=== PATIENT | male | born 1975 | race Two or more races ===

== ENCOUNTER 2018-12-20 14:02 | Inpatient (IN) | payer OTHER ==
[~2018-12-20] VITALS: Ht 182.9 cm; Wt 104.0 kg
[2018-12-20] MEDS ORDERED: CLOTRIMAZOLE 1% 15 GM CREAM TP ONE (15:00)
[2018-12-20 15:29] LABS: ANION GAP 11 mmol/L (8-16); CALCIUM, TOTAL 9.7 mg/dL (8.8-10.5); CARBON DIOXIDE 28 mmol/L (22-29); CHLORIDE 99 mmol/L (98-107); GLOMERULAR FILTR. RATE CALC > 60 mL/min (>60); GLUCOSE,RANDOM 76 mg/dL (70-110); POTASSIUM 3.5 mmol/L (3.5-5.1); SODIUM SERUM 138 mmol/L (136-145); UREA NITROGEN, BLOOD 18 mg/dL (7-18)
[2018-12-20 15:34] LABS: ALANINE AMINOTRANSFERASE 16 U/L (12-78); ALBUMIN 4.1 g/dL (3.4-5.0); ALKALINE PHOSPHATASE 74 U/L (46-116); ASPARTATE AMINOTRANSFERASE 15 U/L (15-37); BASOPHILS % (AUTO) 0.9 % (0.0-2.0); BILIRUBIN,TOTAL 0.7 mg/dL (0.1-1.0); EOSINOPHILS % (AUTO) 1.8 % (1.0-6.0); HEMATOCRIT 50.8 % (41-53); HEMOGLOBIN 17.1 g/dL (13.5-17.5); LYMPHOCYTES # (AUTO) 1.6 K/uL (1.0-4.8); LYMPHOCYTES % (AUTO) 15.5 % (22.0-44.0); MEAN CORPUSCULAR HEMOGLOBIN 28.5 pg (26.0-34.0); MEAN CORPUSCULAR HGB CONC 33.7 G/dL (31.0-37.0); MEAN CORPUSCULAR VOLUME 85 fL (80-100); MONOCYTES # (AUTO) 0.9 K/uL (0.1-1.0); MONOCYTES % (AUTO) 8.3 % (2.0-9.0); NEUTROPHILS # (AUTO) 7.7 K/uL (1.8-7.7); NEUTROPHILS % (AUTO) 73.5 % (40.0-70.0); PLATELET COUNT (AUTO) 430 K/uL (150-450); RED BLOOD CELL COUNT(AUTO) 6.01 MIL/uL (4.50-5.90); RED CELL DISTRIBUTION WIDTH 14.2 % (11.5-14.5); TOTAL PROTEIN, SERUM 7.9 g/dL (6.4-8.2)
[2018-12-20] MEDS ORDERED: ONDANSETRON HCL 4 MG/2 ML VIAL IVP PRN ×2 (16:00→16:15)
[2018-12-20] MEDS ORDERED: HYDROCODONE/ACETAMINOPHEN 5-325 MG TABLET PO PRN (16:00)
[2018-12-20] MEDS ORDERED: MORPHINE SULFATE 2 MG/ML SYRINGE IVP PRN (16:00)
[2018-12-20] MEDS ORDERED: IPRATROPIUM BROMIDE 0.5 MG/2.5 ML NEB SOLUTION NEB PRN (16:00)
[2018-12-20] MEDS ORDERED: BISACODYL 10 MG RECTAL RECTAL SUPPOSITORY PR PRN (16:00)
[2018-12-20] MEDS ORDERED: MAGNESIUM HYDROXIDE SUSPENSION 30 ML UDCUP PO PRN (16:00)
[2018-12-20] MEDS ORDERED: DOCUSATE SODIUM 100 MG CAPSULE PO PRN (16:00)
[2018-12-20] MEDS ORDERED: ALBUTEROL SULFATE 2.5 MG/0.5 ML NEB SOLUTION NEB PRN (16:00)
[2018-12-20] MEDS ORDERED: ACETAMINOPHEN 325 MG TABLET PO PRN (16:15)
[2018-12-20] MEDS ORDERED: 0.9% SODIUM CHLORIDE 10 ML SYRINGE IVP PRN (16:15)
[2018-12-20] MEDS ORDERED: DiphenhydrAMINE HCL 25 MG CAPSULE PO PRN (16:30)
[2018-12-20] MEDS: FOLIC ACID 1 MG TABLET PO SCH (16:31)
[2018-12-20] MEDS ORDERED: LORazepam 2 MG/ML VIAL IVP PRN (17:00)
[2018-12-20 17:06] VITALS: BP 119/72
[2018-12-20] MEDS: MULTIVITAMINS, THERAPEUTIC TABLET PO SCH (17:28)
[2018-12-20] MEDS: SODIUM CHLORIDE 0.9% 1,000 ML IV SCH (17:28)
[2018-12-20] MEDS: ACETAMINOPHEN 325 MG TABLET PO PRN (18:06)
[2018-12-20 19:15] VITALS: BP 113/54
[2018-12-20] MEDS: FAMOTIDINE 20 MG TABLET PO SCH (20:24)
[2018-12-20 23:48] VITALS: BP 114/59
[2018-12-21 04:00] VITALS: BP 114/97
[2018-12-21] MEDS: ChlordiazePOXIDE HCL 25 MG CAPSULE PO PRN (06:37)
[2018-12-21] MEDS: SODIUM CHLORIDE 0.9% 1,000 ML IV SCH ×2 (06:37→19:35)
[2018-12-21 07:22] LABS: ANION GAP 9 mmol/L (8-16); CALCIUM, TOTAL 8.7 mg/dL (8.8-10.5); CARBON DIOXIDE 25 mmol/L (22-29); CHLORIDE 102 mmol/L (98-107); CREATININE 0.77 mg/dL (0.60-1.30); GLOMERULAR FILTR. RATE CALC > 60 mL/min (>60); GLUCOSE,RANDOM 80 mg/dL (70-110); POTASSIUM 4.3 mmol/L (3.5-5.1); SODIUM SERUM 136 mmol/L (136-145); UREA NITROGEN, BLOOD 18 mg/dL (7-18)
[2018-12-21 07:38] LABS: BASOPHILS % (AUTO) 1.2 % (0.0-2.0); EOSINOPHILS % (AUTO) 2.8 % (1.0-6.0); HEMATOCRIT 48.8 % (41-53); HEMOGLOBIN 15.9 g/dL (13.5-17.5); LYMPHOCYTES # (AUTO) 1.3 K/uL (1.0-4.8); LYMPHOCYTES % (AUTO) 18.9 % (22.0-44.0); MEAN CORPUSCULAR HEMOGLOBIN 27.9 pg (26.0-34.0); MEAN CORPUSCULAR HGB CONC 32.7 G/dL (31.0-37.0); MEAN CORPUSCULAR VOLUME 86 fL (80-100); MONOCYTES # (AUTO) 0.9 K/uL (0.1-1.0); MONOCYTES % (AUTO) 13.5 % (2.0-9.0); NEUTROPHILS # (AUTO) 4.3 K/uL (1.8-7.7); NEUTROPHILS % (AUTO) 63.6 % (40.0-70.0); PLATELET COUNT (AUTO) 344 K/uL (150-450); RED BLOOD CELL COUNT(AUTO) 5.71 MIL/uL (4.50-5.90); RED CELL DISTRIBUTION WIDTH 14.1 % (11.5-14.5)
[2018-12-21 07:45] VITALS: BP 93/52
[2018-12-21] MEDS: THIAMINE HCL 100 MG TABLET PO SCH (08:15)
[2018-12-21] MEDS: MULTIVITAMINS, THERAPEUTIC TABLET PO SCH (08:15)
[2018-12-21] MEDS: FOLIC ACID 1 MG TABLET PO SCH (08:15)
[2018-12-21] MEDS: FAMOTIDINE 20 MG TABLET PO SCH ×2 (08:15→19:34)
[2018-12-21 11:38] VITALS: BP 100/69
[2018-12-21 15:30] VITALS: BP 122/78
[2018-12-21 19:30] VITALS: BP 106/61
[2018-12-21 23:25] VITALS: BP 97/57
[2018-12-22 04:50] VITALS: BP 104/61
[2018-12-22 07:30] VITALS: BP 113/62
[2018-12-22] MEDS: FOLIC ACID 1 MG TABLET PO SCH (08:46)
[2018-12-22] MEDS: FAMOTIDINE 20 MG TABLET PO SCH (08:46)
[2018-12-22] MEDS: THIAMINE HCL 100 MG TABLET PO SCH (08:49)
[2018-12-22] MEDS: MULTIVITAMINS, THERAPEUTIC TABLET PO SCH (08:49)
[2018-12-22] MEDS: ChlordiazePOXIDE HCL 25 MG CAPSULE PO PRN (08:58)
[2018-12-22] MEDS: ACETAMINOPHEN 325 MG TABLET PO PRN (08:59)
[2018-12-22] MEDS: SODIUM CHLORIDE 0.9% 1,000 ML IV SCH (10:39)
[2018-12-22 11:00] VITALS: BP 108/68
[2018-12-22] MEDS ORDERED: CHLO25CA5 PO (13:00)
== END 2018-12-22 15:50 | disposition home or self-care (01) | DRG 897 ==
LOC: EMS 14:05 → 6S 16:03
PROVIDERS: ADMIT Internal Medicine; ATTEND Internal Medicine
DX: F10.10 Alcohol abuse, uncomplicated (principal); F15.10 Other stimulant abuse, uncomplicated; B35.4 Tinea corporis; Z87.891 Personal history of nicotine dependence; I11.9 Hypertensive heart disease without heart failure
CPT/HCPCS: 99406; G0480; J7030

== ENCOUNTER 2020-11-11 13:54 | Inpatient (IN) | payer OTHER ==
[~2020-11-11] VITALS: Ht 188 cm; Wt 90.9 kg
[~2020-11-11 13:54] MED LIST: CHLO25CA5 PO
[2020-11-11] MEDS ORDERED: ChlordiazePOXIDE HCL 25 MG CAPSULE PO ONE (14:15)
[2020-11-11 15:03] LABS: BASOPHILS % (AUTO) 0.7 % (0.0-2.0); HEMATOCRIT 48.4 % (41-53); LYMPHOCYTES # (AUTO) 1.7 K/uL (1.0-4.8); LYMPHOCYTES % (AUTO) 20.6 % (22.0-44.0); MEAN CORPUSCULAR HEMOGLOBIN 27.9 pg (26.0-34.0); MEAN CORPUSCULAR HGB CONC 33.1 G/dL (31.0-37.0); MEAN CORPUSCULAR VOLUME 84 fL (80-100); MONOCYTES # (AUTO) 0.7 K/uL (0.1-1.0); MONOCYTES % (AUTO) 8.6 % (2.0-9.0); NEUTROPHILS # (AUTO) 5.6 K/uL (1.8-7.7); NEUTROPHILS % (AUTO) 68.1 % (40.0-70.0); PLATELET COUNT (AUTO) 339 K/uL (150-450); RED BLOOD CELL COUNT(AUTO) 5.73 MIL/uL (4.50-5.90); RED CELL DISTRIBUTION WIDTH 14.7 % (11.5-14.5)
[2020-11-11 15:08] LABS: COVID AG,FIA SOURCE NASOPHARYNGEAL
[2020-11-11 15:12] LABS: ANION GAP 6 mmol/L (8-16); CARBON DIOXIDE 30 mmol/L (22-29); CHLORIDE 108 mmol/L (98-107); CREATININE 0.81 mg/dL (0.60-1.30); GLOMERULAR FILTR. RATE CALC > 60 mL/min (>60); GLUCOSE,RANDOM 63 mg/dL (70-110); POTASSIUM 3.4 mmol/L (3.5-5.1); SODIUM SERUM 144 mmol/L (136-145); UREA NITROGEN, BLOOD 19 mg/dL (7-18)
[2020-11-11 15:18] LABS: ALANINE AMINOTRANSFERASE 31 U/L (12-78); ALBUMIN 3.8 g/dL (3.4-5.0); ALKALINE PHOSPHATASE 64 U/L (46-116); ASPARTATE AMINOTRANSFERASE 21 U/L (15-37); BILIRUBIN,TOTAL 0.7 mg/dL (0.1-1.0); PHOSPHORUS 3.4 mg/dL (2.5-4.9); TOTAL PROTEIN, SERUM 7.5 g/dL (6.4-8.2)
[2020-11-11 15:29] LABS: APPEARANCE,URINE CLEAR (CLEAR); BILIRUBIN,URINE NEGATIVE (NEGATIVE); GLUCOSE, URINE (UA) NEGATIVE (NEGATIVE); KETONES,URINE NEGATIVE (NEGATIVE); LEUKOCYTE ESTERASE ,URINE NEGATIVE (NEGATIVE); NITRATE,URINE NEGATIVE (NEGATIVE); OCCULT BLOOD,URINE NEGATIVE (NEGATIVE); PH,URINE 6.5 (5.0-8.0); PROTEIN,URINE NEGATIVE (NEGATIVE)
[2020-11-11 15:35] LABS: AMPHET/METH SCREEN,URINE POSITIVE (NEGATIVE); BARBITURATE SCREEN, URINE NEGATIVE (NEGATIVE); BENZODIAZEPINES SCREEN,URINE NEGATIVE (NEGATIVE); CANNABINOID SCREEN,URINE NEGATIVE (NEGATIVE); COCAINE SCREEN,URINE NEGATIVE (NEGATIVE); METHADONE SCREEN, URINE NEGATIVE (NEGATIVE); OPIATE SCREEN,URINE NEGATIVE (NEGATIVE)
[2020-11-11 15:36] LABS: PHENCYCLIDINE SCREEN,URINE NEGATIVE (NEGATIVE)
[2020-11-11] MEDS ORDERED: ONDANSETRON HCL 4 MG/2 ML VIAL IVP PRN ×2 (16:00→16:15)
[2020-11-11] MEDS ORDERED: ACETAMINOPHEN 325 MG TABLET PO PRN (16:00)
[2020-11-11] MEDS ORDERED: 0.9% SODIUM CHLORIDE 10 ML SYRINGE IVP PRN (16:00)
[2020-11-11] MEDS ORDERED: ACETAMINOPHEN 500 MG TABLET PO ONE (16:00)
[2020-11-11] MEDS ORDERED: MAGNESIUM HYDROXIDE SUSPENSION 30 ML UDCUP PO PRN (16:15)
[2020-11-11] MEDS ORDERED: POTASSIUM CHLORIDE 20 MEQ ER TABLET PO PRN (16:15)
[2020-11-11] MEDS ORDERED: HYDROCODONE/ACETAMINOPHEN 5-325 MG TABLET PO PRN (16:15)
[2020-11-11] MEDS ORDERED: POTASSIUM CHL 10 MEQ/WATER 50 ML IV PRN (16:15)
[2020-11-11] MEDS ORDERED: MORPHINE SULFATE 2 MG/ML SYRINGE IVP PRN (16:15)
[2020-11-11] MEDS ORDERED: MAGNESIUM SULFATE 2 GM/WATER 50 ML IV PRN (16:15)
[2020-11-11] MEDS ORDERED: BISACODYL 10 MG RECTAL RECTAL SUPPOSITORY PR PRN (16:15)
[2020-11-11] MEDS ORDERED: LORazepam 2 MG/ML VIAL IM PRN (16:15)
[2020-11-11] MEDS ORDERED: MAGNESIUM SULFATE 4 GM/WATER 100 ML IV PRN (16:15)
[2020-11-11] MEDS ORDERED: MAGNESIUM OXIDE 400 MG TABLET PO PRN (16:15)
[2020-11-11] MEDS ORDERED: MAGNESIUM SULFATE 2 GM, MVI, ADULT NO.1 WITH VIT K 10 ML, THIAMINE 100 MG, FOLIC ACID 1... IV ONE ×5 (17:00)
[2020-11-11 17:10] VITALS: BP 101/65
[2020-11-11] MEDS: ACETAMINOPHEN 325 MG TABLET PO PRN (18:06)
[2020-11-11 20:10] VITALS: BP 92/55
[2020-11-11] MEDS: ZOLPIDEM TARTRATE 5 MG TABLET PO PRN (20:17)
[2020-11-11] MEDS: DOCUSATE SODIUM 100 MG CAPSULE PO SCH (20:17)
[2020-11-11] MEDS: HEPARIN SODIUM,PORCINE 5,000 UNITS/ML VIAL SQ SCH (23:22)
[2020-11-12 04:21] VITALS: BP 101/55
[2020-11-12 05:42] LABS: BASOPHILS % (AUTO) 1.2 % (0.0-2.0); EOSINOPHILS % (AUTO) 5.2 % (1.0-6.0); HEMATOCRIT 42.5 % (41-53); LYMPHOCYTES % (AUTO) 36.3 % (22.0-44.0); MEAN CORPUSCULAR VOLUME 85 fL (80-100); MONOCYTES # (AUTO) 0.5 K/uL (0.1-1.0); MONOCYTES % (AUTO) 9.9 % (2.0-9.0); NEUTROPHILS # (AUTO) 2.6 K/uL (1.8-7.7); NEUTROPHILS % (AUTO) 47.4 % (40.0-70.0); PLATELET COUNT (AUTO) 276 K/uL (150-450); RED BLOOD CELL COUNT(AUTO) 5.02 MIL/uL (4.50-5.90); RED CELL DISTRIBUTION WIDTH 14.5 % (11.5-14.5)
[2020-11-12 08:02] VITALS: BP 106/56
[2020-11-12] MEDS: PANTOPRAZOLE SODIUM 40 MG DR TABLET PO SCH (08:02)
[2020-11-12] MEDS: HEPARIN SODIUM,PORCINE 5,000 UNITS/ML VIAL SQ SCH ×3 (08:03→23:22)
[2020-11-12] MEDS: DOCUSATE SODIUM 100 MG CAPSULE PO SCH ×2 (08:03→20:13)
[2020-11-12 10:05] LABS: ALANINE AMINOTRANSFERASE 25 U/L (12-78); ALKALINE PHOSPHATASE 51 U/L (46-116); ANION GAP 9 mmol/L (8-16); ASPARTATE AMINOTRANSFERASE 18 U/L (15-37); BILIRUBIN,TOTAL 0.4 mg/dL (0.1-1.0); CALCIUM, TOTAL 8.2 mg/dL (8.8-10.5); CARBON DIOXIDE 25 mmol/L (22-29); CHLORIDE 109 mmol/L (98-107); CREATININE 0.75 mg/dL (0.60-1.30); GLOMERULAR FILTR. RATE CALC > 60 mL/min (>60); GLUCOSE,RANDOM 97 mg/dL (70-110); SODIUM SERUM 143 mmol/L (136-145); TOTAL PROTEIN, SERUM 5.9 g/dL (6.4-8.2); UREA NITROGEN, BLOOD 16 mg/dL (7-18)
[2020-11-12 14:56] VITALS: BP 110/60
[2020-11-12 19:33] VITALS: BP 114/68
[2020-11-12] MEDS: ZOLPIDEM TARTRATE 5 MG TABLET PO PRN (20:13)
[2020-11-12 23:22] VITALS: BP 123/70
[2020-11-13 03:55] VITALS: BP 128/65
[2020-11-13] MEDS: DOCUSATE SODIUM 100 MG CAPSULE PO SCH (08:22)
[2020-11-13] MEDS: PANTOPRAZOLE SODIUM 40 MG DR TABLET PO SCH (08:22)
[2020-11-13] MEDS: HEPARIN SODIUM,PORCINE 5,000 UNITS/ML VIAL SQ SCH ×2 (08:23→15:45)
[2020-11-13 08:34] VITALS: BP 109/66
[2020-11-13] MEDS: ACETAMINOPHEN 325 MG TABLET PO PRN (15:45)
== END 2020-11-13 19:20 | DRG 897 ==
LOC: EDUNIT# 13:54 → EMS 13:57 → 6S 16:18
PROVIDERS: ADMIT Internal Medicine; ATTEND Internal Medicine
DX: F11.13 Opioid abuse with withdrawal (principal); F10.139 Alcohol abuse with withdrawal, unspecified; Z20.822 Contact with and (suspected) exposure to COVID-19; E87.6 Hypokalemia; E86.0 Dehydration; F41.9 Anxiety disorder, unspecified; F15.90 Other stimulant use, unspecified, uncomplicated; F17.210 Nicotine dependence, cigarettes, uncomplicated; Y90.9 Presence of alcohol in blood, level not specified
CPT/HCPCS: 80053; 81003; 83735; 84100; 84132; 85025; 93005; 99285; G0480; J1644; J2405; J3411; J3475; J3490; J7030

== ENCOUNTER 2024-12-20 11:10 | Inpatient (IN) | payer OTHER ==
[~2024-12-20] VITALS: Ht 172.7 cm; Wt 90.0 kg
[2024-12-20 13:09] LABS: PLATELET COUNT (AUTO) 279 K/uL (150-450); RED BLOOD CELL COUNT(AUTO) 5.08 MIL/uL (4.50-5.90); RED CELL DISTRIBUTION WIDTH 14.6 % (11.5-14.5); WHITE BLOOD COUNT (AUTO) 6.8 K/uL (4.5-11.0)
[2024-12-20 13:19] LABS: CALCIUM, TOTAL 8.4 mg/dL (8.8-10.5); CREATININE 0.66 mg/dL (0.60-1.30); GLOMERULAR FILTR. RATE CALC > 60 mL/min (>60); GLUCOSE,RANDOM 83 mg/dL (70-110); SODIUM SERUM 139 mmol/L (136-145); UREA NITROGEN, BLOOD 11 mg/dL (7-18)
[2024-12-20] MEDS: PERTUSS(ACELL),DIPH,TET/PF 0.5 ML SYRINGE [ADULT] IM. ONE (13:22)
[2024-12-20 13:51] LABS: PH,URINE DRUG SCREEN 6.5 (5.0-8.0)
[2024-12-20 14:45] LABS: ALCOHOL, URINE DRUG SCREEN NEGATIVE (NEGATIVE); AMPHET/METH SCREEN,URINE NEGATIVE (NEGATIVE); BARBITURATE SCREEN, URINE NEGATIVE (NEGATIVE); CANNABINOID SCREEN,URINE NEGATIVE (NEGATIVE); COCAINE SCREEN,URINE NEGATIVE (NEGATIVE); METHADONE SCREEN, URINE NEGATIVE (NEGATIVE)
[2024-12-21 00:13] VITALS: BP 127/82; PULSE 68; RESP 18; TEMP 97.7; O2SAT 99
[2024-12-21 06:25] VITALS: BP 110/79; PULSE 61; RESP 18; TEMP 98.1; O2SAT 99
[2024-12-21 07:36] VITALS: BP 115/77; PULSE 60; RESP 18; TEMP 97.5; O2SAT 99
[2024-12-21] MEDS ORDERED: MAG HYDROX/ALUMINUM HYD/SIMETH ES 30 ML SUSPENSION UDCUP PO PRN ×2 (16:30)
[2024-12-21] MEDS ORDERED: DICYCLOMINE HCL 10 MG CAPSULE PO PRN (16:30)
[2024-12-21] MEDS ORDERED: IBUPROFEN 600 MG TABLET PO PRN ×2 (16:30)
[2024-12-21] MEDS ORDERED: MAGNESIUM HYDROXIDE SUSPENSION 30 ML UDCUP PO PRN (16:30)
[2024-12-21] MEDS ORDERED: BACLOFEN 10 MG TABLET PO PRN (16:30)
[2024-12-21] MEDS ORDERED: ALBUTEROL SULFATE 2.5 MG/0.5 ML NEB SOLUTION NEB PRN (16:30)
[2024-12-21] MEDS ORDERED: ONDANSETRON HCL 4 MG/2 ML VIAL IVP PRN (16:30)
[2024-12-21] MEDS ORDERED: ACETAMINOPHEN 325 MG TABLET PO PRN ×2 (16:30)
[2024-12-21] MEDS ORDERED: ZOLPIDEM TARTRATE 5 MG TABLET PO PRN (16:30)
[2024-12-21] MEDS ORDERED: LOPERAMIDE HCL 2 MG/15 ML SUSPENSION UDCUP PO PRN (16:30)
[2024-12-21] MEDS ORDERED: BISACODYL 10 MG RECTAL RECTAL SUPPOSITORY PR PRN (16:30)
[2024-12-21] MEDS ORDERED: PROMETHAZINE HCL 25 MG TABLET PO PRN (16:30)
[2024-12-21] MEDS ORDERED: IPRATROPIUM BROMIDE 0.5 MG/2.5 ML NEB SOLUTION NEB PRN (16:30)
[2024-12-21] MEDS: SODIUM CHLORIDE 0.45% 1,000 ML IV SCH (17:09)
[2024-12-21 19:51] VITALS: BP 94/61; PULSE 65; RESP 18; TEMP 97.9; O2SAT 99
[2024-12-21] MEDS: HEPARIN SODIUM,PORCINE 5,000 UNITS/ML VIAL SQ SCH (23:06)
[2024-12-22 05:07] VITALS: BP 112/73; PULSE 60; RESP 18; TEMP 97.9; O2SAT 98
[2024-12-22] MEDS: PANTOPRAZOLE SODIUM 40 MG DR TABLET PO SCH (07:48)
[2024-12-22 09:00] VITALS: BP 109/72; PULSE 58; RESP 18; TEMP 97.5; O2SAT 97
[2024-12-22 12:15] VITALS: BP 104/62; PULSE 60; RESP 18; O2SAT 98
[2024-12-22 16:43] VITALS: BP 99/60; PULSE 60; RESP 18
== END 2024-12-23 05:42 | DRG 897 ==
LOC: EMS 11:43 → EDH 15:58 → 6N 21:35
PROVIDERS: ADMIT Hospitalist; ATTEND Hospitalist
DX: F11.23 Opioid dependence with withdrawal (principal); F15.23 Other stimulant dependence with withdrawal; I10 Essential (primary) hypertension; F19.10 Other psychoactive substance abuse, uncomplicated; F10.90 Alcohol use, unspecified, uncomplicated; Y90.0 Blood alcohol level of less than 20 mg/100 ml; F20.9 Schizophrenia, unspecified; G47.00 Insomnia, unspecified
CPT/HCPCS: 80048; 80307; 85025; 90715; 96372; 99285; G0480; J1644